=== PATIENT | female | born 1940 | race Caucasian/White ===

== ENCOUNTER 2018-03-21 16:08 | Outpatient (REF) | payer OTHER, SELFPAY ==
[2018-03-21 19:34] LABS: ALT 39 U/L (12-78); Anion Gap 6.9 mmol/L (3-11); BUN 22 mg/dL (7-18); CO2 32.1 mmol/L (21.0-32.0); CREATININE 0.95 mg/dL (0.55-1.02); Calcium 9.8 mg/dL (8.5-10.1); Chloride 102 mmol/L (98-107); Estimated GFR 56.89 (mL/min/1.73m2); Glucose 93 mg/dL (70-100); Potassium 3.5 mmol/L (3.5-5.1); Sodium 141 mmol/L (136-145)
[2018-03-21 19:46] LABS: LDL CHOLESTEROL 83 mg/dL (<100)
== END 2018-03-21 16:28 ==
LOC: NCHCN 16:08
PROVIDERS: PCP Internal Medicine; Visit Provider Internal Medicine
DX: I10 Essential (primary) hypertension (principal); E78.5 Hyperlipidemia, unspecified; G25.0 Essential tremor
CPT/HCPCS: 80048; 83721; 84443; 84460

== ENCOUNTER 2019-03-22 13:21 | Outpatient (REF) | payer OTHER, SELFPAY ==
[2019-03-22 20:37] LABS: ALT 32 U/L (14-59); Albumin 3.8 g/dL (3.4-5.0); Anion Gap 7.1 mmol/L (3-11); BUN 16 mg/dL (7-18); CO2 31.9 mmol/L (21.0-32.0); CREATININE 1.01 mg/dL (0.55-1.02); Calcium 10.1 mg/dL (8.5-10.1); Chloride 102 mmol/L (98-107); Estimated GFR 52.87 (mL/min/1.73m2); Glucose 89 mg/dL (70-100); LDL CHOLESTEROL 76 mg/dL (<100); Potassium 3.6 mmol/L (3.5-5.1); Sodium 141 mmol/L (136-145); TSH 1.13 uIU/mL (0.36-3.74)
[2019-03-22 21:03] LABS: PHOSPHORUS 3.7 mg/dL (2.6-4.7)
== END 2019-03-22 13:41 ==
LOC: NCHCN 13:21
PROVIDERS: PCP Internal Medicine; Visit Provider Internal Medicine
DX: I10 Essential (primary) hypertension (principal); L71.9 Rosacea, unspecified; M75.50 Bursitis of unspecified shoulder
CPT/HCPCS: 80069; 83721; 84443; 84460

== ENCOUNTER 2020-03-28 15:19 | Outpatient (REF) | payer OTHER, SELFPAY ==
[2020-03-28 19:33] LABS: ALT 27 U/L (14-59); Anion Gap 6.8 mmol/L (3-11); BUN 21 mg/dL (7-18); CO2 29.2 mmol/L (21.0-32.0); CREATININE 1.02 mg/dL (0.55-1.02); Calcium 9.8 mg/dL (8.5-10.1); Chloride 103 mmol/L (98-107); Estimated GFR 52.14 (mL/min/1.73m2); Glucose 94 mg/dL (74-106); LDL CHOLESTEROL 68 mg/dL (<100); Potassium 3.6 mmol/L (3.5-5.1); Sodium 139 mmol/L (136-145)
== END 2020-03-28 15:39 ==
LOC: NCHCN 15:19
PROVIDERS: PCP Internal Medicine; Visit Provider Internal Medicine
DX: I10 Essential (primary) hypertension (principal); Z00.00 Encounter for general adult medical examination without abnormal findings; L71.9 Rosacea, unspecified; E78.5 Hyperlipidemia, unspecified
CPT/HCPCS: 80048; 83721; 84460

== ENCOUNTER 2020-04-17 20:51 | Outpatient (REF) | payer OTHER, SELFPAY ==
[2020-04-18 09:27] LABS: C Diff PCR Positive (Negative)
[2020-04-19 15:05] LABS: Campylobacter PCR Negative (Negative); Salmonella PCR Negative (Negative); Shiga Toxin PCR Negative (Negative); Shigella/Enteroinvasive Ecoli Negative (Negative)
[2020-04-19 16:53] LABS: Giardia & Cryptosporidium Ag See Comments
== END 2020-04-17 21:11 ==
LOC: NCHCN 20:51
PROVIDERS: PCP Internal Medicine; Visit Provider Nurse Practitioner Family
DX: R19.7 Diarrhea, unspecified (principal)
CPT/HCPCS: 87329; 87493; 87505; 87324

== ENCOUNTER 2021-03-24 19:37 | Outpatient (REF) | payer MEDICARE, SELFPAY ==
[2021-03-24 20:26] LABS: ALT 32 U/L (14-59); Anion Gap 7.6 mmol/L (3-11); BUN 17 mg/dL (7-18); CO2 31.4 mmol/L (21.0-32.0); Calcium 9.8 mg/dL (8.5-10.1); Chloride 103 mmol/L (98-107); Estimated GFR 53.21 (mL/min/1.73m2); Glucose 98 mg/dL (74-106); LDL CHOLESTEROL 68 mg/dL (<100); Potassium 3.6 mmol/L (3.5-5.1); Sodium 142 mmol/L (136-145)
== END 2021-03-24 19:38 | disposition home or self-care (01) ==
LOC: NCHCN 19:37
PROVIDERS: PCP Internal Medicine; Visit Provider Internal Medicine
DX: I10 Essential (primary) hypertension (principal); E78.5 Hyperlipidemia, unspecified
CPT/HCPCS: 80048; 83721; 84460

== ENCOUNTER 2022-03-30 19:07 | Outpatient (REF) | payer MEDICARE, SELFPAY ==
[2022-03-30 20:40] LABS: Anion Gap 6.4 mmol/L (3-11); BUN 21 mg/dL (7-18); CO2 31.6 mmol/L (21.0-32.0); CREATININE 0.9 mg/dL (0.55-1.02); Calcium 10.2 mg/dL (8.5-10.1); Calculated LDL 64 mg/dL (<100); Chloride 103 mmol/L (98-107); Cholesterol 154 mg/dL (<200); Estimated GFR 63.83 (mL/min/1.73m2); Glucose 87 mg/dL (74-106); HDL Cholesterol 69 mg/dL (40-60); Potassium 3.3 mmol/L (3.5-5.1); Sodium 141 mmol/L (136-145); Triglyceride 109 mg/dL (<150)
== END 2022-03-30 19:08 | disposition home or self-care (01) ==
LOC: NCHCN 19:07
PROVIDERS: PCP Internal Medicine; Visit Provider Internal Medicine
DX: I10 Essential (primary) hypertension (principal); E78.5 Hyperlipidemia, unspecified
CPT/HCPCS: 80048; 80061

== ENCOUNTER 2022-04-09 18:29 | Outpatient (REF) | payer MEDICARE, SELFPAY ==
[2022-04-09 19:27] LABS: Ferritin 96 ng/mL (8-252)
[2022-04-09 19:37] LABS: Iron 64 ug/dL (50-170); Total Iron Binding Capacity 339 ug/dL (250-450); Transferrin Sat 19 % (15-50)
[2022-04-16 14:39] LABS: Specimen WB Whole Blood
== END 2022-04-09 18:30 | disposition home or self-care (01) ==
LOC: NCHCN 18:29
PROVIDERS: PCP Internal Medicine; Visit Provider Internal Medicine
DX: Z83.2 Family history of diseases of the blood and blood-forming organs and certain disorders involving the immune mechanism (principal); I10 Essential (primary) hypertension; E78.5 Hyperlipidemia, unspecified
CPT/HCPCS: 81256; 82728; 83540; 83550

== ENCOUNTER 2022-11-18 08:20 | Outpatient (CLI) | payer MEDICARE, SELFPAY ==
--- NOTE | 2022-11-18 08:15 | RT.EKG_ITS ---
APPROVED REPORT Exam: Resting ECG Reason for Exam: tachy-candido Patient Location: O HR:109 bpm ECG Measurements Heart Rate 109 AXIS DE [id number] P [id number] QRSd 114 QRS -19 QT 341 T -44 QTc 460 Conclusion Atrial fibrillation...? atrial activity Diffuse ST-T abnormalities Baseline wander in lead(s) II,V1,V2,V3,V4,V5,V6
== END 2022-11-18 08:21 | disposition home or self-care (01) ==
LOC: DI.CARD 08:21
PROVIDERS: PCP Internal Medicine; Visit Provider Physician Assistant
DX: I49.8 Other specified cardiac arrhythmias (principal); Z95.0 Presence of cardiac pacemaker
CPT/HCPCS: 93010

== ENCOUNTER → 2022-11-18 12:40 | Outpatient (BNVA) | payer MEDICARE, SELFPAY | PROVIDERS: PCP Internal Medicine; Referring Provider Internal Medicine; Visit Provider Physician Assistant | DX: Z45.010 Encounter for checking and testing of cardiac pacemaker pulse generator [battery] (principal); I49.5 Sick sinus syndrome | CPT/HCPCS: 93005; 93280 ==

== ENCOUNTER 2022-11-27 14:18 | Outpatient (REF) | payer MEDICARE, SELFPAY ==
[2022-11-27 18:57] LABS: Abs Immature Grans 0.01 10^3/uL (0.0-0.06); Absolute Eosinophil Count 0.35 10^3/uL (0.0-0.7); Absolute Lymphocyte Count 2.26 10^3/uL (1.2-3.4); Absolute Monocyte Count 0.78 10^3/uL (0.1-0.8); Basophils % 1.3; Eosinophils % 4.6; HCT 41.7 % (36.0-46.0); HGB 14.1 g/dL (11.2-15.7); Immature Grans % 0.1; Lymphocytes % 29.7; MCH 30.4 pg (27.0-33.0); MCHC 33.8 % (32.0-36.0); MCV 90 fL (80-95); MPV 9.8 fL (8.0-11.0); Monocytes % 10.3; Platelet Count 218 10^3/uL (130-400); RBC 4.64 10^6/uL (3.93-5.22); RDW 13.2 % (11.7-14.6); RDW-SD 43.6 fL
[2022-11-27 19:12] LABS: ALT 29 U/L (14-59); AST 34 U/L (15-37); Albumin 3.5 g/dL (3.4-5.0); Alkaline Phosphatase 100 U/L (46-116); Anion Gap 6.7 mmol/L (3-11); BUN 27 mg/dL (7-18); Bilirubin, Total 0.6 mg/dL (0.2-1.0); CO2 27.3 mmol/L (21.0-32.0); Calcium 9.8 mg/dL (8.5-10.1); Calculated LDL 55 mg/dL (<100); Chloride 110 mmol/L (98-107); Cholesterol 146 mg/dL (<200); Estimated GFR 56.25 (mL/min/1.73m2); Glucose 98 mg/dL (74-106); HDL Cholesterol 65 mg/dL (40-60); Sodium 144 mmol/L (136-145); Total Protein 7.1 g/dL (6.4-8.2); Triglyceride 132 mg/dL (<150)
== END 2022-11-27 14:19 | disposition home or self-care (01) ==
LOC: NCHCN 14:18
PROVIDERS: PCP Internal Medicine; Visit Provider Internal Medicine
DX: E78.5 Hyperlipidemia, unspecified (principal); I48.0 Paroxysmal atrial fibrillation; I49.5 Sick sinus syndrome
CPT/HCPCS: 80053; 80061; 85025

== ENCOUNTER 2023-01-25 15:39 | Outpatient (REF) | payer MEDICARE, SELFPAY ==
--- NOTE | 2023-01-25 15:00 | SKI_PTH ---
PATIENT: Jossy Hull LOC: [facility] U#:[id number] AGE/SX: 83/F ROOM: RE01/25/[address]: Farhat Coleman : 1940 BED: DIS: 01/25/2023 SPEC #: [id number] RECD: 01/25/23 18:32 STATUS: ROB LAWRENCE #: [id number] LUCERO: 01/25/23 15:[address]: Farhat Coleman DEPT: Surgical Specimen RECD BY: Laura Styles Tissues: 1 - SKIN BIOPSY(SHAVE/PUNCH) Procedures: SKIN LEVEL 4 Comments: [id number]
== END 2023-01-25 15:40 | disposition home or self-care (01) ==
LOC: NCHCN 15:39
PROVIDERS: PCP Internal Medicine; Visit Provider Internal Medicine
DX: L82.1 Other seborrheic keratosis (principal)
CPT/HCPCS: 88305

== ENCOUNTER 2023-10-04 14:04 | Outpatient (REF) | payer MEDICARE, SELFPAY ==
[2023-10-04 19:03] LABS: HCT 43.7 % (36.0-46.0); HGB 14.8 g/dL (11.2-15.7); MCH 30.2 pg (27.0-33.0); MCHC 33.9 % (32.0-36.0); MCV 89 fL (80-95); MPV 10.1 fL (8.0-11.0); Platelet Count 220 10^3/uL (130-400); RDW 13.2 % (11.7-14.6); RDW-SD 42.7 fL
[2023-10-04 19:16] LABS: ALT 34 U/L (14-59); AST 38 U/L (15-37); Albumin 4.1 g/dL (3.4-5.0); Alkaline Phosphatase 111 U/L (46-116); Anion Gap 10.9 mmol/L (3-11); BUN 25 mg/dL (7-18); Bilirubin, Total 0.8 mg/dL (0.2-1.0); CO2 27.1 mmol/L (21.0-32.0); CREATININE 1.2 mg/dL (0.55-1.02); Calcium 9.9 mg/dL (8.5-10.1); Calculated LDL 63 mg/dL (<100); Chloride 105 mmol/L (98-107); Cholesterol 153 mg/dL (<200); Estimated GFR 44.91 (mL/min/1.73m2); Glucose 85 mg/dL (74-106); HDL Cholesterol 73 mg/dL (40-60); Potassium 4.5 mmol/L (3.5-5.1); Sodium 143 mmol/L (136-145); Total Protein 7.5 g/dL (6.4-8.2); Triglyceride 88 mg/dL (<150)
== END 2023-10-04 14:05 | disposition home or self-care (01) ==
LOC: NCHCN 14:04
PROVIDERS: PCP Internal Medicine; Visit Provider Internal Medicine
DX: E78.5 Hyperlipidemia, unspecified (principal); Z51.81 Encounter for therapeutic drug level monitoring; Z79.899 Other long term (current) drug therapy
CPT/HCPCS: 80053; 80061; 85027

== ENCOUNTER → 2023-11-17 12:31 | Outpatient (BNVA) | payer MEDICARE, SELFPAY | PROVIDERS: PCP Internal Medicine; Referring Provider Internal Medicine; Visit Provider Student in an Organized Health Care Education/Training Program | DX: Z95.810 Presence of automatic (implantable) cardiac defibrillator (principal); I49.5 Sick sinus syndrome | CPT/HCPCS: 93280 ==

== ENCOUNTER 2024-11-15 07:53 | Outpatient (CLI) | payer MEDICARE, OTHER, SELFPAY ==
--- NOTE | 2024-11-15 07:45 | RT.EKG_ITS ---
APPROVED REPORT Exam: Resting ECG Reason for Exam: CAD Patient Location: O HR:85 bpm ECG Measurements Heart Rate 85 AXIS FL [id number] P [id number] QRSd 106 QRS -16 QT 366 T 5 QTc 436 Conclusion Atrial fibrillation.
== END 2024-11-15 07:54 | disposition home or self-care (01) ==
LOC: DI.CARD 07:54
PROVIDERS: PCP Internal Medicine; Visit Provider Student in an Organized Health Care Education/Training Program
DX: I49.5 Sick sinus syndrome (principal); I25.10 Atherosclerotic heart disease of native coronary artery without angina pectoris
CPT/HCPCS: 93010

== ENCOUNTER → 2024-11-15 13:20 | Outpatient (BNVA) | payer MEDICARE, OTHER, SELFPAY | PROVIDERS: PCP Internal Medicine; Referring Provider Internal Medicine; Visit Provider Student in an Organized Health Care Education/Training Program | DX: I25.10 Atherosclerotic heart disease of native coronary artery without angina pectoris (principal); I49.5 Sick sinus syndrome; Z45.018 Encounter for adjustment and management of other part of cardiac pacemaker | CPT/HCPCS: 93005; 93280 ==

== ENCOUNTER 2025-03-21 14:27 | Outpatient (REF) | payer MEDICARE, SELFPAY ==
[2025-03-21 20:31] LABS: Abs Immature Grans 0.01 10^3/uL (0.0-0.06); HCT 45.4 % (36.0-46.0); HGB 15.0 g/dL (11.2-15.7); Immature Grans % 0.1 %; MCH 29.3 pg (27.0-33.0); MCHC 33.0 % (32.0-36.0); MCV 89 fL (80-95); MPV 9.8 fL (8.0-11.0); Platelet Count 208 10^3/uL (130-400); RBC 5.12 10^6/uL (3.93-5.22); RDW 13.6 % (11.7-14.6); RDW-SD 43.9 fL; WBC 7.84 10^3/uL (4.4-10.8)
[2025-03-21 20:41] LABS: ALT 31 U/L (14-59); AST 26 U/L (15-37); Albumin 3.7 g/dL (3.4-5.0); Alkaline Phosphatase 114 U/L (46-116); Anion Gap 7.0 mmol/L (3-11); BUN 27 mg/dL (7-18); Bilirubin, Total 0.7 mg/dL (0.2-1.0); CO2 27.0 mmol/L (21.0-32.0); Calcium 9.5 mg/dL (8.5-10.1); Chloride 104 mmol/L (98-107); Estimated GFR 62.65 (mL/min/1.73m2); Glucose 92 mg/dL (74-106); LDL CHOLESTEROL 77 mg/dL (<100); Potassium 4.1 mmol/L (3.5-5.1); Sodium 138 mmol/L (136-145); Total Protein 7.2 g/dL (6.4-8.2)
== END 2025-03-21 14:28 | disposition home or self-care (01) ==
LOC: NCHCN 14:27
PROVIDERS: PCP Internal Medicine; Visit Provider Physician Assistant
DX: I10 Essential (primary) hypertension (principal); E78.5 Hyperlipidemia, unspecified
CPT/HCPCS: 80053; 83721; 85025